=== PATIENT | male | born 2000 | race Caucasian/White ===

== ENCOUNTER 2023-12-05 15:46 | Emergency (ER) | payer SELFPAY ==
[2023-12-05 15:46] VITALS: BMI 19.0
[2023-12-05 16:10] VITALS: BP 123/77
--- NOTE | 2023-12-05 17:30 | ED.GENMED ---
History of Present Illness
<Jayashree Olivera DO - Last Filed: 12/05/23 19:43>
General
Chief Complaint: Abdominal Pain
Time Seen by Provider: 12/05/23 17:20
History of Present Illness
History of Present Illness:
23yoM no past medical history presenting with periumbilical/RLQ abdominal pain starting today. Pt states sometimes pain is worse with movement, but then states sometimes it feels better with walking around. Pt states he had an episode of nonbloody
loose stools today. Pt reports nausea. Pt denies vomiting, fever, or urinary symptoms. Pt denies history of previous abdominal surgeries.
Phy Exam
<Jayashree Olivera DO - Last Filed: 12/05/23 19:43>
Physical Exam
Physical Exam:
General: Alert, no acute distress
Head: NCAT
Eyes: clear conjunctiva
Neck: supple
Cardiac: regular rate and rhythm, no murmur
Lungs: clear to auscultation bilaterally. No wheezes, rales, or rhonchi. Speaking full unlabored sentences. No respiratory distress.
Abdomen: soft, nondistended, periumbilical/RLQ tenderness
MSK: no lower extremity edema bilaterally. No deformity
Skin: warm, dry
Neuro: Alert and oriented x3. no focal deficits
Course
<Jayashree Olivera DO - Last Filed: 12/05/23 19:43>
Orders/Labs/Results
Orders:
Orders
12/05/23 17:28
Iohexol [Omnipaque] See Protocol PO NOW STA
Ketorolac [Toradol] 15 mg IV NOW STA
12/05/23 17:29
0.9% Sodium Chloride 1000 ml [Nss] 1,000 ml IV BOLUS
12/05/23 17:50
Complete Blood Count/With Diff Urgent
Comprehensive Metabolic Panel Urgent
Lipase Urgent
12/05/23 19:45
Urinalysis Reflex To Culture Urgent
Date Specimen was Collected: 12/05/23
Time Specimen was Collected: 19:44
12/05/23 20:07
Iohexol [Omnipaque] See Protocol PO NOW STA
12/05/23 20:08
CT Abd/pel W Iv And Oral Contr Urgent
Comment:
Reason For Exam: periumbilial/rlq tenderness
Abnormal Lab Results
12/05/23
17:50
WBC 3.7 L 10^3/uL
(4.8-10.8)
RBC 4.67 L 10^6/uL
(4.70-6.10)
MCH 32.3 H pg
(27.0-31.0)
Plt Count 129 L 10^3/uL
(130-400)
MPV 11.6 H fL
(7.4-10.4)
Albumin 5.2 H g/dl
(3.5-5.0)
Lipase 400 H U/L
(23-300)
12/05/23 17:50
12/05/23 17:50
Vital Signs
Initial and Last Documented VS:
Initial Vital Signs
Temp Pulse Resp BP Pulse Ox
97.9 F 57 16 123/77 100
12/05/23 16:10 12/05/23 16:10 12/05/23 16:10 12/05/23 16:10 12/05/23 16:10
Last Documented Vital Signs
Temp Pulse Resp BP Pulse Ox
97.9 F 64 16 115/81 98
12/05/23 16:10 12/06/23 00:50 12/06/23 00:50 12/06/23 00:50 12/06/23 00:50
<Yao Bailey MD - Last Filed: 12/06/23 03:07>
Orders/Labs/Results
Orders:
Orders
12/05/23 17:28
Iohexol [Omnipaque] See Protocol PO NOW STA
Ketorolac [Toradol] 15 mg IV NOW STA
12/05/23 17:29
0.9% Sodium Chloride 1000 ml [Nss] 1,000 ml IV BOLUS
12/05/23 17:50
Complete Blood Count/With Diff Urgent
Comprehensive Metabolic Panel Urgent
Lipase Urgent
12/05/23 19:45
Urinalysis Reflex To Culture Urgent
Date Specimen was Collected: 12/05/23
Time Specimen was Collected: 19:44
12/05/23 20:07
Iohexol [Omnipaque] See Protocol PO NOW STA
12/05/23 20:08
CT Abd/pel W Iv And Oral Contr Urgent
Comment:
Reason For Exam: periumbilial/rlq tenderness
Abnormal Lab Results
12/05/23
17:50
WBC 3.7 L 10^3/uL
(4.8-10.8)
RBC 4.67 L 10^6/uL
(4.70-6.10)
MCH 32.3 H pg
(27.0-31.0)
Plt Count 129 L 10^3/uL
(130-400)
MPV 11.6 H fL
(7.4-10.4)
Albumin 5.2 H g/dl
(3.5-5.0)
Lipase 400 H U/L
(23-300)
12/05/23 17:50
12/05/23 17:50
Vital Signs
Initial and Last Documented VS:
Initial Vital Signs
Temp Pulse Resp BP Pulse Ox
97.9 F 57 16 123/77 100
12/05/23 16:10 12/05/23 16:10 12/05/23 16:10 12/05/23 16:10 12/05/23 16:10
Last Documented Vital Signs
Temp Pulse Resp BP Pulse Ox
97.9 F 64 16 115/81 98
12/05/23 16:10 12/06/23 00:50 12/06/23 00:50 12/06/23 00:50 12/06/23 00:50
<Jayashree Olivera DO - Last Filed: 12/05/23 19:43>
MDM/Problems Addressed
Differential Diagnosis Includes:
appendicitis, diverticulitis, mesenteric adenitis, IBS, UTI, kidney stone
MDM/Problems Addressed:
23yoM presenting with periumbilical/RLQ pain starting today with nausea. Will obtain CT abdomen/pelvis to assess for appendicitis/intraabdominal pathology.
<Yao Bailey MD - Last Filed: 12/06/23 03:07>
*Critical Care Note
Total Time (30-74mins, 75-104mins- exclusive of procedures): Not Applicable
<Yao Bailey MD - Last Filed: 12/06/23 03:07>
Update Note
Update Note:
Per signout, CT abd/pel report reviewed and discussed with patient. Repeat abd exam: soft and nontender. Pt will be discharged home in stable condition, to the care of his family, with recommendation to increase fluid intake along with stool
softener/laxative as an outpatient. However, early appendicitis precaution provided to the patient, including fever/worsening pain/vomiting.
ED Attending Note
<Jayashree Olivera DO - Last Filed: 12/05/23 19:43>
-
Portions of this chart may have been created with voice recognition software.� Occasional wrong word or��sound alike� substitutions may have occurred due to the inherent limitations of voice recognition software.
Discharge Plan
Departure
Patient Disposition: Home (Routine Discharge)
Date of Disposition: 12/06/23
Time of Disposition: 00:34
Patient with high blood pressure during this ER visit?: Yes
Discharge Problem:
Abdominal pain
Instructions: Abdominal Pain
Referrals:
NONE,* [Family Provider] -
Activity Restrictions/Additional Instructions:
As discussed, please follow up with your primary care physician with any further concerns.
Interventions
Interventions:
*Risk Screen - Suicide Last Done: 12/06/23 00:51
*General Assessment Last Done: 12/06/23 00:51
*Neglect/Abuse Screening Last Done: 12/06/23 00:51
ED- Fall Risk Assessment Last Done: 12/05/23 18:26
*ED COVID-19 Vaccine History Last Done: 12/06/23 00:51
*Nursing Disposition Last Done: 12/06/23 00:51
YY-Rkxmks-Qemjlljjjk Assessment Last Done: 12/05/23 18:26
Discharge Date and Time
Discharge Date/Time: 12/06/23 00:52
Print Language: THAI
[2023-12-05] MEDS: NSS 1000 IV (17:48)
[2023-12-05] MEDS: TORADOL 15 MG IV (17:48)
[2023-12-05 18:22] VITALS: BP 123/50
[2023-12-05 19:43] VITALS: BP 98/53
[2023-12-05 20:00] VITALS: BP 106/63
[2023-12-05 20:01] LABS: % Basophils 0.8 % (0-2); % Eosinophils 1.1 % (0-6); % Immature Granulocytes 0.3 % (0-0.5); % Lymphocytes 34.6 % (20.5-51.1); % Monocytes 5.6 % (1.7-9.3); % Neutrophils 57.6 % (42.2-75.2); Absolute Lymphocytes 1.3 10^3/uL (1.2-3.4); Absolute Monocytes 0.2 10^3/uL (0.1-0.6); Absolute Neutrophils 2.2 10^3/uL (1.4-6.5); Hemoglobin 15.1 g/dL (13.0-18.0); Mean Corp Hgb Conc. 35.1 g/dL (33.0-37.0); Mean Corpuscular Hgb 32.3 pg (27.0-31.0); Mean Corpuscular Volume 92.1 fL (80.0-94.0); Mean Platelet Volume 11.6 fL (7.4-10.4); Nucleated Red Blood Cells % 0 % (-); Platelet Count 129 10^3/uL (130-400); Red Blood Cell Count 4.67 10^6/uL (4.70-6.10); Red Cell Dist. Width 11.7 % (11.5-14.5); White Blood Cell Count 3.7 10^3/uL (4.8-10.8)
[2023-12-05 20:13] LABS: Urine Albumin Negative (Neg - Trace); Urine Bilirubin Negative (Negative); Urine Character Clear (Clear); Urine Color Yellow; Urine Glucose Negative (Negative); Urine Ketone Negative (Negative); Urine Leukocyte Negative (Negative); Urine Nitrite Negative (Negative); Urine Occult Blood Negative (Negative); Urine Urobilinogen Negative (Neg - 1+)
[2023-12-05 20:25] LABS: ALT (SGPT) 24 U/L (0-50); AST (SGOT) 26 U/L (17-59); Albumin 5.2 g/dl (3.5-5.0); Alkaline Phosphatase 70 U/L (38-126); Blood Urea Nitrogen 9 mg/dl (9-20); Calcium 9.9 mg/dl (8.4-10.2); Carbon Dioxide 28 mmol/L (22-30); Chloride 99 mmol/L (98-107); Estimated Creatinine Clearance > 125 ml/min; Glucose 89 mg/dl (70-99); Lipase 400 U/L (23-300); Potassium 4.5 mmol/L (3.5-5.1); Sodium 139 mmol/L (135-145); Total Bilirubin 0.7 mg/dl (0.2-1.3); Total Protein 7.7 g/dl (6.3-8.2); eGFR > 60.00
[2023-12-05] MEDS: OMNIPAQUE 50 ML PO (21:34)
[2023-12-06 00:50] VITALS: BP 115/81
== END 2023-12-06 00:52 | disposition home or self-care (01) ==
LOC: EMR 15:46
PROVIDERS: Student in an Organized Health Care Education/Training Program; EMERGENCY PHYSICIAN Emergency Medicine
DX: R10.31 Right lower quadrant pain (principal); R10.33 Periumbilical pain; R11.0 Nausea; R03.0 Elevated blood-pressure reading, without diagnosis of hypertension
CPT/HCPCS: 99284; 96361; 96374; 74177; 80053; 81003; 83690; 85025; Q9967